=== PATIENT | male | born 1955 | race African-American/Black ===

== ENCOUNTER 2020-02-10 14:15 | Emergency (ER) | payer MEDICARE, MEDICAID ==
[~2020-02-10] VITALS: Ht 182.9 cm; Wt 94.3 kg
[2020-02-10 14:31] VITALS: BP 145/71
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
--- NOTE | 2020-02-10 14:50 | NUR ---
ED Nurse Note: Pt taken to CT in stable condition.
--- NOTE | 2020-02-10 15:31 | Diagnostic Imaging Report ---
Indication: Headache status post trauma Technique: Continuous helical CT scanning of the head was performed utilizing automated exposure control without intravenous contrast material. Axial and coronal reconstructions were obtained. Comparison: 07/19/2012 CT dose: Total DLP 1126 mGycm; CTDI vol 53.4 mGy Findings: There is no acute intracranial hemorrhage, mass effect or cortical edema. There is no shift the midline structures. The ventricles, cisterns and sulci are within normal limits for age. Minimal periventricular hypoattenuation is seen, a nonspecific finding. Visualized mastoid air cells and paranasal sinuses are unremarkable. There is been interval resolution of the previously seen mass in the medial aspect of the right orbit. Correlate with surgical history. No focal lesions of the bony calvarium or soft tissues of the scalp are seen. IMPRESSION: No evidence of acute intracranial hemorrhage, mass effect or cortical edema. No acute skull fracture. The CT scanner at [facility] is accredited by the [employer] and the scans are performed using protocols designed to limit radiation exposure to as low as reasonably achievable to attain images of sufficient resolution adequate for diagnostic evaluation.
[2020-02-10] MEDS ORDERED: IBUPROFEN600 M1 ORAL (15:45)
[2020-02-10] MEDS ORDERED: ROBAXIN-750750 MG PO (15:45)
[2020-02-10] MEDS ORDERED: HYDROcodone/Acetamin 5/325 tab ORAL ONE (15:45)
--- NOTE | 2020-02-10 15:46 | Diagnostic Imaging Report ---
Indication: Right clavicular/shoulder pain status post injury Technique: 2 views of the right clavicle Comparison: None Findings: Pneumatization within normal limits. No acute right clavicular fracture is identified. Right shoulder joint is maintained, without evidence of dislocation. No radiopaque foreign body is identified. Atherosclerotic calcifications noted in the aorta. There are degenerative changes spine. Impression: No evidence of acute clavicular fracture.
--- NOTE | 2020-02-10 15:48 | Diagnostic Imaging Report ---
Indication: Hand pain status post injury Technique: 3 views of the right hand Comparison: None Findings: Bone mineralization within normal limits. No acute fractures identified. There is moderate degenerative changes of the basal joint with joint space narrowing and some productive change. No evidence of dislocation. No radiopaque foreign body. IMPRESSION: No acute fracture or dislocation. Moderate degenerative changes of the basal joint.
--- NOTE | 2020-02-10 15:49 | Diagnostic Imaging Report ---
Indication: Wrist pain status post injury Technique: 3 views of the right wrist Comparison: None Findings: Bone mineralization within normal limits. No acute fracture identified. Significant degenerative changes noted at the basal joint with joint space narrowing and productive changes. No radiopaque foreign body. IMPRESSION: No acute fracture or dislocation. Degenerative changes at the basal joint.
[2020-02-10 15:52] VITALS: BP 138/86
--- NOTE | 2020-02-10 15:52 | NUR ---
ER DISCHARGE NOTE: Patient is cleared to be discharged per PA, pt is aox4, on room air, with stable vital signs. pt was given dc and prescription instructions, pt was able to verbalize understanding, pt id band removed. pt is able to ambulate with steady gait. pt took all belongings.
== END 2020-02-10 15:52 | disposition home or self-care (01) ==
LOC: EDBD 14:15 → EMR 14:56
DX: S60.221A Contusion of right hand, initial encounter (principal); S63.501A Unspecified sprain of right wrist, initial encounter; R51 Headache; Z79.82 Long term (current) use of aspirin; V43.52XA Car driver injured in collision with other type car in traffic accident, initial encounter; Y92.410 Unspecified street and highway as the place of occurrence of the external cause
CPT/HCPCS: 29125; 70450; 99284